=== PATIENT | female | born 1985 | race Caucasian/White ===

== ENCOUNTER 2025-02-12 17:49 | Emergency (ER) | payer BC ==
[~2025-02-12] VITALS: Ht 167.6 cm; Wt 108.1 kg
[2025-02-12 17:56] VITALS: BP 139/82; PULSE 75; RESP 16; TEMP 98.7; O2SAT 100
[2025-02-12 18:29] LABS: MEAN PLATELET VOLUME 7.5 FL (7.4-10.4); RED CELL DISTRIBUTION WIDTH 14.1 % (11.5-14.5)
[2025-02-12 18:45] LABS: LEUKOCYTE ESTERASE ,URINE NEGATIVE (Neg); NITRITES, URINE NEGATIVE (Neg); OCCULT BLOOD,URINE NEGATIVE (Neg)
[2025-02-12 18:47] LABS: URINE HCG NEGATIVE (NEG)
[2025-02-12 18:47] LABS: CREATININE 0.76 MG/DL (0.40-0.90); TOTAL CARBON DIOXIDE 27.6 MMOL/L (24-32); eCRCL 94 ML/MIN; eGFR 85 ML/MIN
[2025-02-12 18:50] LABS: UA COLLECTION TYPE CLN CATCH MIDSTREAM
--- NOTE | 2025-02-12 20:39 | Physician Documentation ---
History of Present Illness Chief Complaint: Abdominal Pain Stated Complaint: APPENDICITIS Time Seen by MD: 20:32 HPI This is a 39-year-old female who presents with three days of intermittent right lower quadrant pain described as sharp and stabbing, patient reports pain is currently not present. Patient reports feeling intermittent nausea and loss of appetite though other lies reports feels well. Patient reports no other acute symptoms or concerns. Patient reports no fever. Medication Reconciliation Allergies: Coded Allergies: No Known Allergies (Unverified , 02/12/25) Past Medical History Past Medical History: No Pertinent History Review of Systems ROS As stated above in the HPI, otherwise all systems are reviewed and negative. Physical Exam Vital Signs: Temperature: 98.7, Source: Oral, Heart Rate: 75, Respiratory Rate: 16, BP: 139/82, Pulse Oximetry: 100, Weight: 108.100 Oxygen Flow Rate: 0 Physical Exam VITALS: Reviewed and as above. GENERAL: Alert, nontoxic appearing, no apparent distress. RESPIRATORY: No increased work of breathing, no respiratory distress, speaking in full clear sentences BACK: No CVA tenderness GI: Soft, nondistended, nontender, no rebound, no guarding, bowel sounds present Progress Results/Orders Results/Orders Vital Signs 02/12/25 17:56 Temp 98.7 Pulse 75 Resp 16 B/P (MAP) 139/82 Pulse Ox 100 O2 Flow Rate 0 Laboratory Tests Test 02/12/25 17:59 02/12/25 18:19 Urine Specimen Description Cln catch midstream Urine Color Yellow Urine Clarity Clear Urine pH 6.0 Urine Specific [place] 1.025 Urine Protein Negative Urine Glucose (UA) Negative Urine Ketones Trace H Urine Occult Blood Negative Urine Nitrite Negative Urine Bilirubin Negative Urine Urobilinogen 0.2 Urine Leukocyte Esterase Negative Urine Culture Indicated Not ind Volume Urine Centrifuged 10 ml Urine HCG, Qualitative Negative Urine Comment White Blood Count 14.0 H Red Blood Count 5.41 Hemoglobin 14.6 Hematocrit 45.0 Mean Corpuscular Volume 83.2 Mean Corpuscular Hemoglobin 27.0 Mean Corpuscular Hemoglobin Concent 32.5 L Red Cell Distribution Width 14.1 Platelet Count 380 Mean Platelet Volume 7.5 Neutrophils (%) (Auto) 70.9 Lymphocytes (%) (Auto) 21.6 Monocytes (%) (Auto) 5.0 Eosinophils (%) (Auto) 1.5 Basophils (%) (Auto) 1.0 Neutrophils # (Auto) 9.9 H Lymphocytes # (Auto) 3.0 Monocytes # (Auto) 0.7 Eosinophils # (Auto) 0.2 Basophils # (Auto) 0.1 CBC Comment Sodium Level 139 Potassium Level 4.0 Chloride Level 104 Carbon Dioxide Level 27.6 Anion Gap 7 L Blood Urea Nitrogen 10 Creatinine 0.76 Estimated GFR/1.73 m2 85 BUN/Creatinine Ratio 13.2 Glucose Level 95 Calcium Level 9.0 Total Bilirubin 0.3 Aspartate Amino Transf (AST/SGOT) 25 Alanine Aminotransferase (ALT/SGPT) 36 Alkaline Phosphatase 97 Total Protein 8.3 H Albumin 4.1 Globulin 4.2 Albumin/Globulin Ratio 1.0 L Lipase 24 Chemistry Comments Medical Decision Making Additional information obtaine: N/A Findings This 39-year-old female presented with three days of intermittent right lower quadrant abdominal pain described as sharp and stabbing though no longer present on exam without other associated symptoms or concerns. Physical exam reassuring with a soft nontender belly and no CVA tenderness. Lab work reassuring without significant findings though noted that has a slight elevated WBC. No clear source of intermittent right lower quadrant abdominal pain though serious differentials including including but not limited to appendicitis, ovarian torsion, PID, and bowel obstruction considered though less likely as pain is currently not present and is described as intermittent. With shared decision- making patient will opt for watchful waiting and follow up with primary care provider. Patient provided careful return to care precautions. Differential Dx:Considerations: -Complete, -Incomplete, -Inevitable, -Missed, -Threatened, Abruptio placentae, Appendicitis, Bowel obstruction, Cholelithasis, Constipation, Diverticular disease, Esophagitis, Gastritis/PUD, Gastroenteritis, Hernia, Hepatitis, Inflammatory BD, Ovarian cyst/torsion, Pancreatitis, PID, Trauma, intraabdominal, Urinary obstruction, Urinary tract infection, Urolithiasis Departure Time of Disposition: 20:38 Impression: Primary Impression: Abdominal pain Qualified Codes: R10.31 - Right lower quadrant pain Condition: Improved Discharge Instructions: Abdominal Pain (Nonspecific) Additional Instructions: There was not a clear source of your pain in his we discussed without further imaging we can not rule out all serious causes though it is reassuring your pain is not currently present. Please follow up with the primary care provider as soon as possible. Return to the emergency department should the pain return or worsen. Please follow up with your primary care provider in the next few days. Please return to the emergency department for any new or worsening concerning symptoms but not limited to bloody stools, worsening abdominal pain, or fever. Referrals: NO PRIMARY CARE PROVIDER (PCP) Education Educated: Patient Educated regarding: diagnosis, treatment, prognosis, need for follow up Signature Scribe Signature: No scribe Attestation: The note accurately reflects work and decisions made by me.RAND Stringer 02/12/25 20:39 EDIS SANDOVAL Feb 12, 2025 20:39
== END 2025-02-12 20:46 | disposition home or self-care (01) ==
LOC: ER 17:50
DX: R10.31 Right lower quadrant pain (principal)
CPT/HCPCS: 36415; 80053; 81003; 81025; 83690; 85025; 99283